=== PATIENT | female | born 1975 | race Caucasian/White ===

== ENCOUNTER 2020-05-21 12:19 | Outpatient (CLI) | payer BC, SELFPAY ==
--- NOTE | ~2020-05-21 | MMUS_ITS ---
EXAMINATION: MM diagnostic [facility] BI w alessandro, US breast BI limited HISTORY: Palpable lumps in the subareolar left breast and lower right breast. TECHNIQUE: Craniocaudal, mediolateral, and mediolateral oblique 3-D tomosynthesis images of the vikram ts were performed and synthetic 2-D images were generated. CAD analysis was submitted and interpreted . High resolution limited bilateral breast ultrasound was performed. COMPARISON: No prior mammogram is currently available for comparison. BREAST PARENCHYMAL COMPOSITION: The breasts are extremely dense, which lowers the sensitivity of mamm ography. FINDINGS: MAMMOGRAPHIC FINDINGS: Right breast: No definite mammographic correlate is identified for the reported palpable abnormality of concern. There is no suspicious calcification or architectural distortion. Left breast: There is a 1.6 cm oval, obscured, equal density mass in the subareolar aspect of the lef t breast in the area of the palpable concern. ULTRASOUND: Right breast: There are adjacent cysts measuring up to 7 mm at the 8:30 location 6 cm from the nipple corresponding to the palpable abnormality of concern. Multiple additional smaller cysts are noted in the right breast. Left breast: There is a 2.1 cm cyst in the subareolar aspect of the breast corresponding to the palpa ble abnormality of concern. Similar to the right breast, multiple additional smaller cysts are noted in the lower inner quadrant of the breast. IMPRESSION: 1. Multiple bilateral breast cysts without mammographic or sonographic evidence of malignancy. 2. Recommend routine screening mammography in one year. BI-RADS Category 2: Benign finding(s). Reviewed, dictated and finalized at location A. WRITER IMPRESSION: 1. Multiple bilateral breast cysts without mammographic or sonographic evidence of malignancy. 2. Recommend routine screening mammography in one year. BI-RADS Category 2: Benign finding(s).
== END 2020-05-21 12:20 | disposition home or self-care (01) ==
PROVIDERS: PCP Obstetrics & Gynecology; Visit Provider Obstetrics & Gynecology
DX: N63.42 Unspecified lump in left breast, subareolar (principal)
CPT/HCPCS: 76642; 77062; 77066; G0279

== ENCOUNTER 2021-08-13 15:59 | Outpatient (CLI) | payer BC, SELFPAY ==
--- NOTE | ~2021-08-13 | MM_ITS ---
EXAMINATION: MM screening [facility] BI w alessandro HISTORY: Screening mammogram TECHNIQUE: Craniocaudal and mediolateral oblique 3-D tomosynthesis images were obtained and synthetic 2-D images were generated. CAD analysis was submitted and interpreted. COMPARISON: 05/21/2020 BREAST PARENCHYMAL COMPOSITION: The breasts are extremely dense, which lowers the sensitivity of mamm ography. FINDINGS: An obscured low density in oval mass in the upper outer quadrant of the left breast has the appearance of a cyst, particularly given the multiple cysts identified on prior ultrasound. There is no evidence of suspicious mass, calcification, or architectural distortion to suggest malignancy in either breast. There has been no suspicious interval change. IMPRESSION: 1. No mammographic evidence of malignancy. 2. Recommend routine screening mammography in one year. BI-RADS Category 2: Benign finding(s). Reviewed, dictated and finalized at location A. SAFETY DIRECTOR
== END 2021-08-13 16:00 | disposition home or self-care (01) ==
LOC: ANHIMG 16:01
PROVIDERS: PCP Obstetrics & Gynecology; Visit Provider Obstetrics & Gynecology
DX: Z12.31 Encounter for screening mammogram for malignant neoplasm of breast (principal)
CPT/HCPCS: 77063; 77067

== ENCOUNTER 2022-10-15 09:06 | Outpatient (CLI) | payer BC, SELFPAY ==
--- NOTE | ~2022-10-15 | MM_ITS ---
EXAMINATION: MM screening [facility] BI w alessandro HISTORY: Screening mammogram TECHNIQUE: Craniocaudal and mediolateral oblique 3-D tomosynthesis images were obtained and synthetic 2-D images were generated. CAD analysis was submitted and interpreted. COMPARISON: No prior mammogram is available for comparison at this institution. BREAST PARENCHYMAL COMPOSITION: The breasts are extremely dense, which lowers the sensitivity of mamm ography. FINDINGS: Subtle microcalcifications are noted in the upper outer left breast. Diagnostic left mammogram with magnification views is recommended. Otherwise there is no evidence of suspicious mass, calcification, or architectural distortion to sugg est malignancy in either breast. There has been no other suspicious interval change. IMPRESSION: 1. Subtle microcalcifications, upper outer left breast 2. Diagnostic left mammogram with magnification views is recommended BI-RADS Category 0: Incomplete: Needs additional imaging evaluation. Reviewed, dictated and finalized at location A.
== END 2022-10-15 09:07 | disposition home or self-care (01) ==
LOC: ANHIMG 09:07
PROVIDERS: PCP Obstetrics & Gynecology; Visit Provider Obstetrics & Gynecology
DX: Z12.31 Encounter for screening mammogram for malignant neoplasm of breast (principal); R92.0 Mammographic microcalcification found on diagnostic imaging of breast
CPT/HCPCS: 77063; 77067

== ENCOUNTER 2022-11-03 13:42 | Outpatient (CLI) | payer BC, SELFPAY ==
--- NOTE | ~2022-11-03 | MMUS_ITS ---
EXAMINATION: MM diagnostic alana LT w alessandro, US breast LT complete HISTORY: Sonographic microcalcifications of left breast reported on October 15, 2022 screening mammogram examination TECHNIQUE: Additional 3-D tomosynthesis images of the left breast were performed and synthetic 2-D im ages were generated. CAD analysis was submitted and interpreted. High resolution breast ultrasound wa s performed. COMPARISON: None FINDINGS: MAMMOGRAPHIC FINDINGS: Occasional benign microcalcifications are noted. No suspicious microcalcifications identified. There is dense fibroglandular stroma, which may obscure small masses. Bilateral complete breast ultra sound examination was performed. ULTRASOUND: 2:00 3 cm from nipple: Mildly irregular hypoechoic solid approximately 5.8 x 9 mm lesion is noted, wi thout internal vascularity or posterior features. Ultrasound-guided biopsy is recommended considering the mildly irregular margins. 3:00 6 cm from nipple: 1.5 x 1 cm sonolucency with through transmission posterior enhancement consist ent with simple cyst 6:00 4 cm from nipple: Anti-parallel irregular hypoechoic approximately 4.7 x 8.3 x 5.1 mm lesion is noted, without internal vascularity or posterior shadowing. However, because of the irregular margins and antiparallel configuration, ultrasound-guided biopsy is recommended Subareolar left breast: Parallel circumscribed complicated cyst measuring approximately 1.6 x 7.8 mm, with no internal vascularity, with some through transmission, no abnormal shadowing, likely benign IMPRESSION: 1. Mildly irregular up to 9 mm lesion at 2:00 3 cm from nipple: Ultrasound guided biopsy is recommend ed 2. Approximately 4.7 by 8.3 mm irregular hypoechoic anti-parallel lesion at 6:00 4 cm from nipple; ul trasound-guided biopsy is recommended BI-RADS category 4, suspicious findings. Dr. Dhaliwal telephoned the report and ultrasound guided biopsy recommendations on 11/03/2022 at [address] Hammad Tapia's nurse's voicemail. Reviewed, dictated and finalized at location A. IMPRESSION: 1. Mildly irregular up to 9 mm lesion at 2:00 3 cm from nipple: Ultrasound guid ed biopsy is recommended 2. Approximately 4.7 by 8.3 mm irregular hypoechoic anti-parallel lesion at 6:0 0 4 cm from nipple; ultrasound-guided biopsy is recommended BI-RADS category 4, suspicious findings. Dr. Dhaliwal telephoned the report and ultrasound guided biopsy recommendations on 11/03/2022 [address] Hammad Tapia's nurse's voicemail.
== END 2022-11-03 13:43 | disposition home or self-care (01) ==
LOC: ANHIMG 13:44
PROVIDERS: PCP Obstetrics & Gynecology; Visit Provider Obstetrics & Gynecology
DX: R92.8 Other abnormal and inconclusive findings on diagnostic imaging of breast (principal)
CPT/HCPCS: 76641; 77061; 77065; G0279